=== PATIENT | male | born 1995 | race Caucasian/White ===

== ENCOUNTER 2022-05-23 07:03 | Emergency (ER) | payer OTHER ==
[~2022-05-23] VITALS: Ht 162.6 cm; Wt 64.4 kg
[2022-05-23 07:23] VITALS: BP_SYST 120
--- NOTE | 2022-05-23 07:25 | NUR ---
Patient to ER bed 2 to gown for evaluation. Side rails up. Report given to HUI Decker.
--- NOTE | 2022-05-23 07:40 | NUR ---
RECEIVED PT FROM HUI HOUSTON. PT HAS C/O AB PAIN WITH DIARRHEA X 2 DAY. PT HAS ELEVATED TEMP 99.4F. PT IS AAOX4, RESP E/U. ON R/A. ABDOMEN TENDER TO TOUCH. PT HAS C/O NAUSEA, NO VOMITING. DISTAL PULSES NORMAL, SKIN INTACT, NO EDEMA. SIDERAILS UP X2.
[2022-05-23] MEDS ORDERED: KETOROLAC TROMETHAMINE 30 MG VIAL IVP ONE (07:45)
[2022-05-23] MEDS ORDERED: NACL 0.9% 1,000 ML IV ONE (07:45)
--- NOTE | 2022-05-23 07:45 | NUR ---
DR. BECKHAM AT BEDSIDE, IV CATH TO RFA 20G PLACED, URINE OBTAINED.
[2022-05-23 08:00] LABS: BASOPHILS # (AUTO) 0.1 K/uL (0.0-0.2); BASOPHILS % (AUTO) 0.7 % (0.0-2.0); EOSINOPHILS % (AUTO) 0.2 % (0.0-4.0); HEMATOCRIT 45.1 % (36-54); HEMOGLOBIN 16.1 g/dL (14.0-18.0); LYMPHOCYTES # (AUTO) 1.9 K/uL (1.0-5.5); LYMPHOCYTES % (AUTO) 21.3 % (20.5-51.5); MEAN CORPUSCULAR HEMOGLOBIN 32 pg (27-31); MEAN CORPUSCULAR HGB CONC 36 % (32-36); MEAN CORPUSCULAR VOLUME 88 fL (79.0-98.0); MONOCYTES # (AUTO) 0.4 K/uL (0.0-1.0); NEUTROPHILS # (AUTO) 6.3 K/uL (1.8-7.7); NEUTROPHILS % (AUTO) 72.8 % (40.0-70.0); PLATELET COUNT (AUTO) 168 K/uL (130-430); RED CELL DISTRIBUTION WIDTH 12.9 % (9.0-15.0); WHITE BLOOD COUNT (AUTO) 8.7 K/uL (4.8-10.8)
--- NOTE | 2022-05-23 08:06 | NUR ---
PT S/L AND TAKEN FOR CT SCAN. ALL CARE ENDORSED TO HUI MCKEE.
[2022-05-23 08:11] LABS: BILIRUBIN,URINE NEGATIVE (NEGATIVE); BLOOD, URINE 2+ (NEGATIVE); CLARITY/URINE CLEAR (CLEAR); COLOR,URINE YELLOW (YELLOW); GLUCOSE,URINE NEGATIVE (NEGATIVE); KETONES,URINE TRACE (NEGATIVE); LEUKOCYTE ESTERASE ,URINE NEGATIVE (NEGATIVE); NITRITE, URINE NEGATIVE (NEGATIVE); PH,URINE 5.5 (5.0-8.0); PROTEIN URINE NEGATIVE (NEGATIVE); UROBILINOGEN,URINE 0.2 (0.2-1.0)
[2022-05-23 08:14] LABS: CALCIUM 9.2 mg/dL (8.4-11.0); CREATININE 1.12 mg/dL (0.55-1.30); POTASSIUM 4.2 mmol/L (3.5-5.1)
[2022-05-23 08:20] LABS: TOTAL BILIRUBIN 0.3 mg/dL (0.0-1.0)
--- NOTE | 2022-05-23 08:20 | NUR ---
placed pt back on monitor and iv ns bolus Addendum: 05/23/22 at 0821 by SDNTAVOR pt return from CT scan
[2022-05-23 08:54] LABS: RBC,URINE 0-3 /HPF (0-3); WBC,URINE 0-3 /HPF (0-3)
[2022-05-23 08:55] LABS: BACTERIA,URINE RARE /HPF (None Seen); MUCUS,URINE 1+ /LPF (None Seen)
--- NOTE | 2022-05-23 09:13 | NUR ---
Patient given written and verbal discharge instructions and verbalizes understanding. ER DR KARIN WALKER discussed with patient the results and treatment provided. Patient in stable condition. ID arm band removed. IV catheter removed intact and dressing applied, no active bleeding. NO Rx . Patient educated on pain management and to follow up with PMD. Pain Scale 5 . Opportunity for questions provided and answered. Medication side effect fact sheet provided.
[2022-05-23 09:50] VITALS: BP_SYST 114
--- NOTE | 2022-06-01 06:16 | NUR ---
ADDENDUM Nacl 0.9% 1000ml start time 08:01 end time 09:01
== END 2022-05-23 09:13 | disposition home or self-care (01) ==
LOC: SED 07:03
DX: R10.33 Periumbilical pain (principal); R19.7 Diarrhea, unspecified; R11.0 Nausea; Z79.899 Other long term (current) drug therapy
CPT/HCPCS: 99284; 74176; 96374; 96361; 80053; 81000; 83690; 85025; 36415; 76376; J1885; J7030